=== PATIENT | male | born 1995 | race Caucasian/White ===

== ENCOUNTER 2017-07-29 19:12 | Emergency (ER) | payer BC ==
[~2017-07-29] VITALS: Ht 177.8 cm; Wt 105.0 kg
[2017-07-29 19:52] VITALS: BP 160/80; PULSE 83; RESP 18; TEMP 98.3; O2SAT 96
[2017-07-29 20:17] VITALS: BP 157/78; PULSE 80; PULSE 85; RESP 15; RESP 20; TEMP 98; O2SAT 98; O2SAT 99
--- NOTE | 2017-07-29 20:36 | PD ---
HPI Chief Complaint: Injury Time Seen by Provider: 20:19 Travel History International Travel<30 days: No Contact w/Intl Traveler<30days: No Traveled to known affect area: No History of Present Illness HPI The patient is a 21 year old male who presents to the [facility] emergency department with a history of left wrist injury that occurred while on a flight from [place] to [place] earlier today. He reports that on takeoff the overhead bin began to open over his head. He was concerned that the luggage would fall out on him, therefore he quickly lifted his left hand up and slammed the overhead been closed. He reports that initially he did not have any pain, however around 4:00 he noticed that he had increasing pain along the ulnar aspect of the base of the palm of his hand. He reports that it mainly hurts with movement. He reports that the pain seems to be coming and going. He reports that the pain is a throbbing sensation. He denies having any other injuries. Otherwise review of systems was unremarkable. [facility], LAT[facility] Past Medical History Narrative Medical The patient's past medical history is reportedly none. Medical History: Denies Significant Hx Diminished Hearing: No Tetanus Vaccination: < 5 Years Influenza Vaccination: No Past Surgical History Narrative Surgical The patient's past surgical history is reportedly none. Surgical History: No Previous Surgery Social History Alcohol Use: No Tobacco Use: No Substance Use: No Allergies-Medications (Allergen,Severity, Reaction): Coded Allergies: No Known Allergies (Unverified , 07/29/17) Reported Meds & Prescriptions Reported Meds & Active Scripts Active Ibuprofen 400 Mg Tab 400 Mg PO Q8H PRN Review of Systems Except as stated in HPI: all other systems reviewed are Neg General / Constitutional: No: Fever Eyes: No: Visual changes HENT: No: Headaches Cardiovascular: No: Chest Pain or Discomfort Respiratory: No: Shortness of Breath Gastrointestinal: No: Abdominal Pain Genitourinary: No: Dysuria Musculoskeletal: Positive: Myalgias, Arthralgias, Pain Skin: No Rash Neurologic: No: Weakness, Focal Abnormalities, Change in Mentation, Slurred Speech, Sensory Disturbance Psychiatric: No: Depression Endocrine: No: Polydipsia Hematologic/Lymphatic: No: Easy Bruising Physical Exam Narrative General: The patient is a well-developed well-nourished male in no acute distress. Head and Neck exam: Head is normocephalic atraumatic. Eyes: EOMI, pupils are equal round and reactive to light. Nose: Midline septum with pink mucous membranes Mouth: Dentition unremarkable. Moist mucus membranes. Posterior oropharynx is not erythematous. No tonsillar hypertrophy. Uvula midline. Airway patent. Neck: No palpable lymphadenopathy. No nuchal rigidity. No thyromegaly. Cardiovascular: Regular rate and rhythm without murmurs, gallops, or rubs. Lungs: Clear to auscultation bilaterally. No wheezes, rhonchi, or rales. Abdomen: Soft, without tenderness to palpation in all 4 quadrants of the abdomen. No guarding, rebound, or rigidity. Normal bowel sounds are audible. No tenderness on palpation of McBurney's point. Negative Banks sign. Extremities: No clubbing, cyanosis, or edema. 2+ pulses in all 4 extremities. The patient on examination of bilateral wrists in comparison has no visible swelling, erythema, or ecchymosis. The patient has full range of motion, however he reports having pain in the distal wrist over the distal ulna and ulnar side of the carpal bones. There is no crepitus. There is no step-off. He has no pain in the snuffbox. Back: No spinous process tenderness to palpation. No costovertebral angle tenderness to palpation. Neurologic Exam: Cranial nerves 2-12 were intact on exam. Strength is 5/5 in all 4 extremities. No sensory deficits noted. Skin Exam: No rash noted. Intact skin that is warm and dry. Data Data Last Documented VS Vital Signs Date Time Temp Pulse Resp B/P (MAP) Pulse Ox O2 Delivery O2 Flow Rate FiO2 07/29/17 21:37 07/29/17 20:17 98.0 85 20 99 Orders Orders Ice/Cold Pack (07/29/17 19:56) Ibuprofen (Motrin) (07/29/17 20:45) Wrist, Complete ([id number]) (07/29/17 ) Splint Or Brace Apply/Monitor (07/29/17 21:11) Ed Discharge Order (07/29/17 21:12) Cockup Hand Splint (07/29/17 ) [facility] Medical Decision Making Medical Screen Exam Complete: Yes Emergency Medical Condition: Yes Medical Record Reviewed: Yes Interpretation(s) Last Impressions Wrist X-Ray 07/29/17 0000 Signed Impressions: Service Date/Time: Saturday, July 29, 2017 20:11 - CONCLUSION: Unremarkable examination of the left wrist. Rubin Giron MD Differential Diagnosis Wrist fracture, versus dislocation, versus sprain Narrative Course During the course of the patient's emergency department visit, the patient's history, examination, and differential diagnosis were reviewed with the patient. The patient had an ice pack applied to his left wrist. The patient had a left wrist x-ray ordered. The patient was initially provided ibuprofen 400 mg p.o. 1 Radiology studies were reviewed and remarkable for a left wrist x-ray that is read as unremarkable by the reading radiologist. The patient was placed in a Velcro wrist splint. The patient is instructed on rest, ice, elevation, use of any anti-inflammatory pain medication. The patient is resting comfortably and feels better, is alert and in no distress. The patient's results and examination findings were discussed with the patient. The repeat examination is unremarkable and benign. The history, exam, diagnostic testing, and current condition do not suggest any significant pathology to warrant further testing, continued ED treatment, admission, or surgical evaluation at this point. The vital signs have been stable. The patient does not have uncontrollable pain, intractable vomiting, or other significant symptoms. The patient's condition is stable and appropriate for discharge. The patient will pursue further outpatient evaluation with a primary care physician or other designated or consulting physician as indicated in the discharge instructions. The patient expressed understanding and was agreeable with this plan. Diagnosis Primary Impression: Left wrist sprain Qualified Codes: S63.502A - Unspecified sprain of left wrist, initial encounter Referrals: Nik Joya MD 1 week Primary Care Physician Patient Instructions: General Instructions, Wrist Sprain (ED) Med/Other Pt SpecificInfo: Prescription(s) given Scripts Ibuprofen (Ibuprofen) 400 Mg Tab 400 MG PO Q8H Y for PAIN SCALE 5 TO 10, #12 TAB 0 Refills Prov: Becca Wolfe MD 07/29/17 Disposition: 01 DISCHARGE HOME Condition: Stable Becca Wolfe MD Jul 29, 2017 20:36
[2017-07-29] MEDS ORDERED: IBUP1TAB5 PO (20:37)
[2017-07-29] MEDS ORDERED: IBUPROFEN 400 MG TAB PO ONE (20:45)
--- NOTE | 2017-07-29 21:23 | RADRPT ---
EXAM DATE/TIME: 07/29/2017 20:11 [facility] COMPARISON: No previous studies available for comparison. INDICATIONS : Heavy object fell on wrist. Pain and limited motion. MEDICAL HISTORY : None. SURGICAL HISTORY : None. ENCOUNTER: Initial ACUITY: 1 day PAIN SCORE: 7/10 LOCATION: Left upper extremity FINDINGS: Three view examination of the left wrist demonstrates no soft tissue swelling, dislocation, or fractu re. The carpal bones are in normal alignment. The joint spaces are maintained. Bony mineralization is normal. CONCLUSION: Unremarkable examination of the left wrist. Rubin Giron MD on July 29, 2017 at 21:17 Board Certified Radiologist. This report was verified electronically.
== END 2017-07-29 21:38 | disposition home or self-care (01) ==
LOC: NEPE 19:12
DX: S63.502A Unspecified sprain of left wrist, initial encounter (principal); W22.8XXA Striking against or struck by other objects, initial encounter; Y93.89 Activity, other specified; Y92.813 Airplane as the place of occurrence of the external cause
CPT/HCPCS: 73110; 99283; L3908